=== PATIENT | male | born 1950 ===

== ENCOUNTER 2021-08-31 14:09 | Emergency (ER) | payer MEDICARE, OTHER ==
[~2021-08-31] VITALS: Ht 182.9 cm; Wt 86.0 kg
[2021-08-31] MEDS ORDERED: GABA-1181 PO (15:13)
[2021-08-31] MEDS ORDERED: CARB-98 PO (15:13)
[2021-08-31] MEDS ORDERED: MELA5TAB21 PO (15:13)
[2021-08-31] MEDS ORDERED: SERT-162 PO (15:13)
[2021-08-31] MEDS ORDERED: QUET50TA15 PO (15:13)
[2021-08-31] MEDS ORDERED: QUET25TA PO (15:15)
[2021-08-31] MEDS ORDERED: QUEtiapine FUMARATE 25 MG TABLET PO ONE (18:45)
[2021-08-31 19:25] VITALS: BP 140/75
== END 2021-08-31 21:31 | disposition home or self-care (01) ==
LOC: EMS 14:09
DX: F20.9 Schizophrenia, unspecified (principal); F03.90 Unspecified dementia, unspecified severity, without behavioral disturbance, psychotic disturbance, mood disturbance, and anxiety; G20 Parkinson's disease
CPT/HCPCS: 99285; Z7502; Z7610